=== PATIENT | male | born 1985 | race Caucasian/White ===

== ENCOUNTER 2025-06-05 14:19 | Emergency (ER) | payer OTHER ==
[2025-06-05] MEDS ORDERED: FENTANYL CITR 100 MCG/2 ML ONE (14:41)
[2025-06-05 14:46] LABS: Absolute Lymphocytes (CBC) 1.9 K/uL (0.7-4.9); Hematocrit 50.1 % (39.6-49.0); Hemoglobin 16.9 g/dL (13.6-17.9); MCH 34.2 pg (27.0-35.0); MCHC 33.7 g/dL (32.0-36.0); MCV 101.4 fL (80-100); MPV 9.0 fL (7.6-11.3); Nucleated RBC Absolute Count 0.0 (0-0); Nucleated Red Blood Cells % 0.1 % (0-0); RBC Red Blood Cell Count 4.94 M/uL (4.33-5.43); White Blood Count 5.60 thou/uL (4.3-10.9)
[2025-06-05 14:53] LABS: PT Prothrombin Time 12.1 SECONDS (10-13.0); Protime INR 1.07
[2025-06-05 15:01] LABS: Anion Gap 12.8 mEq/L (5.0-15.0); BUN Blood Urea Nitrogen 6.0 mg/dL (7-18); Glucose Level 102.0 mg/dL (74-106); Potassium 3.8 mEq/L (3.5-5.1)
[2025-06-05] MEDS ORDERED: LIDOCAINE 2% INJ, 20 mL 20 ML ONE (15:56)
--- NOTE | 2025-06-05 15:56 | RAD REPORT ---
EXAM: Chest Abdomen Pelvis W Cont CLINICAL INDICATION: Male, 39 years FALL TECHNIQUE: CT chest, abdomen and pelvis was performed, with IV contrast, as per department protocol. Axial, sagittal and coronal reconstructions were obtained. One or more of the following dose reduction techniques were used: Automated exposure control, adjustment of the mA and/or kV according to the patient size, and/or iterative reconstruction. Unless otherwise specified, incidental findings do not require dedicated imaging follow-up. [id number]. COMPARISON: No prior exams FINDINGS: ---THORAX--- LOWER NECK AND CHEST WALL: Visualized thyroid gland and soft tissues are normal. MEDIASTINUM AND LYMPH NODES: No mediastinal mass or fluid collection. Normal size mediastinal, hilar, and axillary lymph nodes. Small hiatal hernia with thickened distal esophagus. THORACIC AORTA: No thoracic aortic aneurysm. PULMONARY ARTERIES: Caliber is within normal limits. HEART: Normal heart size. No coronary calcifications.No significant pericardial effusion. LUNGS AND AIRWAYS: Airways are clear. No evidence of airspace or interstitial process. Scattered 4 mm and smaller pulmonary nodules noted which are of doubtful significance and do not require follow-up. PLEURA: No pleural effusion. No pneumothorax. ---ABDOMEN/PELVIS--- UPPER GI: No significant abnormality. LIVER: Hepatomegaly with steatosis. GALLBLADDER/BILE DUCTS: No biliary ductal dilatation.? PANCREAS: Secretions in the region of the pancreas. Slight edema around the uncinate. Cystic structur e near the tail the pancreas measures 2.5 x 1.8 cm. SPLEEN: Unremarkable. ADRENALS: No adrenal masses. KIDNEYS AND URETERS: No hydronephrosis.No suspicious renal mass.No renal calculi.No ureteral calculi. ABDOMINAL AORTA AND OTHER VESSELS: Normal caliber aorta and IVC. PERITONEUM: No abnormal free fluid. No free air. LYMPH NODES: No pathologic lymphadenopathy. ABDOMINAL WALL: Unremarkable SMALL BOWEL/COLON: Small bowel has normal course and caliber. No colonic wall thickening or pericolon ic inflammatory changes.Normal appendix. URINARY BLADDER: Nonspecific circumferential bladder wall thickening. REPRODUCTIVE ORGANS: No pathologic process. ---COMBINED--- MUSCULOSKELETAL: Multilevel degenerative changes in the spine. No acute fracture. ADDITIONAL FINDINGS: None. IMPRESSION: No evidence of significant trauma to the chest, abdomen, or pelvis. Mild edema around the uncinate with a few pancreatic head calcifications could reflect sequela of acu te on chronic pancreatitis. Cystic collection near the tail the pancreas. Assuming the patient has had prior pancreatitis, this probably represents a chronic pseudocyst. If no prior history of pancrea titis, suggest 12 month follow-up MRI to assess for stability as this could represent an intraductal papillary mucinous neoplasm (IPMN). Hepatomegaly with steatosis.
[2025-06-05] MEDS ORDERED: LIDOCAINE 2% MPF 5 ML VIAL ONE (16:02)
--- NOTE | 2025-06-05 16:21 | RAD REPORT ---
EXAM: Hand Right 3 View HISTORY: fall COMPARISON: None FINDINGS: Bones: No acute fracture identified. Fixation hardware at the fifth metacarpal. No hardware competiti ons. Alignment:No significant malalignment. Degenerative changes:None significant. Other: No radiopaque foreign body. IMPRESSION: No acute osseous abnormality involving the imaged hand.
--- NOTE | 2025-06-05 17:07 | EDPHYS ---
Physician Documentation [facility] Name: Blayne Kenny Age: 39 yrs Sex: Male : 1985 Arrival Date: 06/05/2025 Time: 14:19 Bed 7 Private MD: ED Physician Harmeet Montes HPI: 06/05 14:30 This 39 yrs old Male presents to ER via EMS with complaints of Fall Injury, Hand Injury cp - Rib pain. 14:30 Details of fall: The patient fell from an upright position, while walking, and struck a cp concrete surface, woodpillar. Onset: The symptoms/episode began/occurred just prior to arrival. Associated injuries: The patient sustained injury to the chest, specifically the right lateral anterior chest and right lateral posterior chest, pain with breathing, pain with movement, tenderness, injury to the abdomen, specifically the anterior aspect of right lateral abdomen and posterior aspect of right lateral abdomen, contusion, tenderness, right hand and right forearm. Severity of symptoms: in the emergency department the symptoms are unchanged, despite home interventions. 14:30 Patient reports losing balance while crab fishing causing him to fall into water. cp Reports falling onto wooden pillar and striking right side of abdomen/chest. Has multiple lacerations to right hand and injury to right forearm. Historical: - Allergies: 14:23 PENICILLINS; iw - Home Meds: 14:23 None [Active]; iw - PMHx: 14:23 Seizure; iw - Infectious Disease History:: Denies. ROS: 14:35 Constitutional: Negative for fever, cp 14:35 Cardiovascular: Positive for chest pain, of the right lateral posterior chest and right cp lateral anterior chest, 14:35 Respiratory: Negative for cough, shortness of breath, wheezing, 14:35 Abdomen/GI: Positive for abdominal pain, of the anterior aspect of right lateral cp abdomen and posterior aspect of right lateral abdomen, contusion, 14:35 Eyes: Negative for injury, pain, redness, and discharge, cp 14:35 Neck: Negative for stiffness, 14:35 MS/extremity: Positive for laceration, tenderness, of the natarajan side of right hand, Negative for decreased range of motion, 14:35 Neuro: Negative for altered mental status, headache, loss of consciousness, 14:35 All other systems are negative, Exam: 14:40 Constitutional: The patient appears in no acute distress, alert, awake, cp non-diaphoretic, non-toxic, well developed, well nourished, uncomfortable, 14:40 Head/Face: Normocephalic, atraumatic. cp 14:40 Eyes: Periorbital structures: appear normal, Conjunctiva: normal, no exudate, no cp injection, Sclera: no appreciated abnormality, Lids and lashes: appear normal, bilaterally, 14:40 ENT: External ear(s): are unremarkable, Nose: is normal, Mouth: Lips: moist, Oral mucosa: moist, Posterior pharynx: Airway: no evidence of obstruction, patent, 14:40 Neck: C-spine: vertebral tenderness, is not appreciated, crepitus, is not appreciated, ROM/movement: pain, is not appreciated, limited range of motion, is not appreciated, 14:40 Chest/axilla: Inspection: normal, Palpation: crepitus, is not appreciated, tenderness, that is moderate, of the right lateral anterior lower chest and right lateral posterior lower chest, 14:40 Cardiovascular: Rate: normal, Rhythm: regular, Edema: is not appreciated, JVD: is not appreciated, 14:40 Respiratory: the patient does not display signs of respiratory distress, Respirations: shallow respirations, that is mild, Breath sounds: are clear throughout, no decreased breath sounds, no stridor, no wheezing, Respiratory rate: 18 14:40 Abdomen/GI: Inspection: bruising, anterior aspect of right lateral lower abdomen and posterior aspect of right lateral lower abdomen, distension, is not seen, Bowel sounds: active, all quadrants, Palpation: severe abdominal tenderness, in the anterior aspect of right lateral lower abdomen and posterior aspect of right lateral lower abdomen, rebound tenderness, is not appreciated, voluntary guarding, 14:40 Back: vertebral tenderness, is not appreciated, 14:40 Musculoskeletal/extremity: Extremities: noted in the right hand: multiple abrasions natarajan side, several superficial lacerations with largest being mid lower palm and vertical approximately 3 cm length through dermal layer. Laceration noted dorsal side of right thumb, transverse along metacarpal head, through subcutaneous tissue, no signs tendon injury, approximately 3 cm in length. Laceration noted base of right fifth finger natarajan side through subcutaneous tissue, no signs tendon injury, laceration extending into web space of right fourth and fifth fingers, approximately 3 cm length, noted in the natarajan side mid right forearm: contusion, ecchymosis, swelling, tenderness, ROM: full active range of motion, in the right hand, Perfusion: the extremity is normally perfused throughout, tingling noted distal phalanx of right small finger 14:40 Skin: no rash present. 14:40 Neuro: Orientation: to person, place \T\ time. Mentation: is normal, Motor: moves all cp fours, Vital Signs: 14:23 BP 122 / 107; Pulse 87; Resp 16; Temp 98.1; Pulse Ox 98% on R/A; Pain 2/10; iw 14:23 Pain Scale: Adult iw Laceration: 17:05 Wound Repair of 3cm ( 1.2in ) full thickness laceration to natarajan side base of right cp fifth finger. Linear shaped.. Neuro:Tingling distal to wound. Vascular:Intact distal to wound. Tendon:Intact distal to wound. Anesthesia: Wound infiltrated with 3 mls of 2% lidocaine. Wound prep: Moderate cleansing by me, Wound irrigation by me. Skin closed with 3 4-0 Prolene using loose closure. Dressed with Bacitracin, 4x4's. Patient tolerated well. 17:05 Wound Repair of 3cm ( 1.2in ) subcutaneous laceration to dorsal side of metacarpal head cp of right thumb. Irregularly shaped.. Distal neuro/vascular/tendon intact. Anesthesia: Wound infiltrated with 3 mls of 2% lidocaine. Wound prep: Moderate cleansing by me, Wound irrigation by me. Skin closed with 3 4-0 Prolene using loose closure. Dressed with Bacitracin, 4x4's. Patient tolerated well. MDM: 14:24 Medical Screening Exam initiated cp 15:00 Differential diagnosis: closed head injury, contusion, fracture, laceration, multiple cp trauma, tendon injury. 16:49 Independent interpretation of the following test(s) in the Emergency Department X-Ray: My interpretation is images of right forearm negative for fracture and images of right hand negative for fracture. 17:06 Data reviewed: vital signs, nurses notes, radiologic studies, CT scan, plain films. 17:06 I considered the following discharge prescriptions or medication management in the emergency department Medications were administered in the Emergency Department. See MAR. Counseling: I had a detailed discussion with the patient and/or guardian regarding the historical points, exam findings, and any diagnostic results supporting the discharge/admit diagnosis, lab results, radiology results, the need for outpatient follow up, a hand specialist, a orthopedic surgeon, to return to the emergency department if symptoms worsen or persist or if there are any questions or concerns that arise at home. Response to treatment: the patient's symptoms have markedly improved after treatment, and as a result, I will discharge patient. Special discussion: I discussed in detail with the patient the higher chance of wound infection based on his presenting history. ED course: Discussed incidental findings on CT of pancreatic cyst and hepatic steatosis. Recommend wound check with ortho/hand next 2-3 days. 06/05 14:24 Order name: Basic Metabolic Panel; Complete Time: 15:05 06/05 15:05 Interpretation: Normal except: BUN 6; CRE 0.68. 06/05 14:24 Order name: CBC with Diff; Complete Time: 15:05 06/05 15:06 Interpretation: Normal except: HCT 50.1; MCV 101.4; PLT 127. 06/05 14:24 Order name: PT-INR; Complete Time: 15:05 06/05 14:24 Order name: CT Chest, Abdomen, Pelvis - W/Contrast; Complete Time: 16:02 06/05 16:03 Interpretation: Report reviewed. 06/05 14:24 Order name: XRAY Hand RIGHT 3 View; Complete Time: 16:46 06/05 16:17 Order name: Forearm Right XRAY; Complete Time: 17:14 [facility] 06/05 17:14 Interpretation: Reviewed. 06/05 14:24 Order name: Labs collected and sent; Complete Time: 14:33 06/05 14:48 Order name: Wound Care: clean and irrigate wounds; Complete Time: 15:07 06/05 16:02 Order name: Dressing - Wound; Complete Time: 16:07 06/05 16:02 Order name: Gloves, Sterile; Complete Time: 16:05 06/05 16:02 Order name: Setup Suture Tray; Complete Time: 16:05 06/05 16:48 Order name: Splint - Volar Wrist Splint; Complete Time: 17:22 06/05 16:48 Order name: Wound dressing; Complete Time: 17:18 cp Administered Medications: 14:49 Not Given (Patient Refused): fentanyl (pf)25 mcg IVP once iw 14:49 Not Given (Patient Refused): fentanyl (pf)25 mcg IVP once iw 16:50 Drug: Lidocaine Infiltration (2 %) 20 ml 5 ml Infiltration once; to bedside {Note: iw admin by PA. Therese} Volume: 5 ml; Route: Infiltration; 17:28 Not Given (Patient Refused): ns 0.9% 1000 ml IV at 1000 ml once; to be given as a bolus iw over 60 minutes 17:28 Drug: Doxycycline PO 100 mg PO once Route: PO; iw 17:30 Follow up: Response: No adverse reaction iw 17:28 Drug: Ibuprofen PO 800 mg PO once Route: PO; iw 17:30 Follow up: Response: No adverse reaction iw Disposition: 18:28 Co-signature as Attending Physician, Harmeet Mnotes MD I reviewed the patient's care rn provided by the Advanced Practice Provider and agree with the diagnosis and treatment plan. Disposition Summary: 06/05/25 17:07 Discharge Ordered Notes: Location: Home cp Problem: new cp Symptoms: have improved cp Condition: Stable cp Diagnosis - Contusion of thorax, unspecified, initial encounter - right lateral cp - Contusion of abdominal wall - right lateral cp - Laceration without foreign body of right hand, initial encounter cp - Contusion of right forearm cp Followup: cp - With: Private Physician - When: 2 - 3 days - Reason: Wound Recheck, laceration to right hand Discharge Instructions: - Discharge Summary Sheet cp - Abdominal Pain, Adult cp - Blunt Abdominal Trauma cp - Contusion cp - Chest Contusion, Adult cp - Laceration Care, Adult cp - Sutured Wound Care cp Forms: - Medication Reconciliation Form cp - Antibiotic Education cp - Prescription Opioid Use cp - Patient Portal Instructions cp - Leadership Thank You Letter cp Prescriptions: - Ibuprofen 800 mg Oral Tablet - take 1 tablet ORAL route every 8 hours As needed take with food; 30 tablet; cp Refills: 0, Product Selection Permitted - Doxycycline Hyclate 100 mg Oral Tablet - take 1 tablet ORAL route every 12 hours; 20 tablet; Refills: 0, Product cp Selection Permitted Signatures: Dispatcher [employer] Brisa Casiano RN RN iw Harmeet Montes MD MD rn Page, Corey, PA-C PA-C cp Corrections: (The following items were deleted from the chart) 14:24 14:24 Hand Right 3 View+[email or web address] ordered. EDMS EDMS 17:06/04 14:35 Constitutional: Negative for chills, fever, poor PO intake, cp cp 06/05 17:06/04 14:35 Respiratory: Negative for cough, shortness of breath, wheezing, cp cp
--- NOTE | 2025-06-05 17:07 | ER ---
Nurse's Notes [facility] Name: Blayne Kenny Age: 39 yrs Sex: Male : 1985 Arrival Date: 06/05/2025 Time: 14:19 Bed 7 Private MD: Diagnosis: Contusion of thorax, unspecified, initial encounter-right lateral;Contusion of abdominal wall-right lateral;Laceration without foreign body of right hand, initial encounter;Contusion of right forearm Presentation: 06/05 14:21 Chief complaint: EMS states: pt [place] on [place] right [place] [address] [place] , cut his right hand on some rocks, pain to right ribs , no LOC. 14:21 Acuity: HERMINIO 4 iw 14:23 Coronavirus screen: At this time, the client does not indicate any symptoms associated iw with coronavirus-19. Ebola Screen: No symptoms or risks identified at this time. Initial Sepsis Screen: Does the patient meet any 2 criteria? No. Patient's initial sepsis screen is negative. Does the patient have a suspected source of infection? No. Patient's initial sepsis screen is negative. Risk Assessment: Do you want to hurt yourself or someone else? Patient reports no desire to harm self or others. Onset of symptoms was June 05, 2025. 14:23 Method Of Arrival: EMS: [facility] iw 14:24 Acuity: HERMINIO 3 iw Historical: - Allergies: 14:23 PENICILLINS; iw - Home Meds: 14:23 None [Active]; iw - PMHx: 14:23 Seizure; iw - Infectious Disease History:: Denies. Assessment: 14:22 General: Appears in no apparent distress. Behavior is calm, cooperative. iw Vital Signs: 14:23 BP 122 / 107; Pulse 87; Resp 16; Temp 98.1; Pulse Ox 98% on R/A; Pain 2/10; iw 14:23 Pain Scale: Adult iw ED Course: 14:20 Patient arrived in ED. em1 14:21 Brisa Schilling, RADHA is Primary Nurse. iw 14:21 Dakota Temple PA-C is PHCP. cp 14:21 Harmeet oMntes MD is Attending Physician. cp 14:22 Triage completed. iw 14:23 Arm band placed on. iw 14:33 Initial lab(s) drawn, by me, sent to lab. Inserted saline lock: 22 gauge in right iw antecubital area, using aseptic technique. Blood collected. Flushed with 10 mL NS. 15:36 CT Chest, Abdomen, Pelvis - W/Contrast In Process Unspecified. EDMS 16:07 XRAY Hand RIGHT 3 View In Process Unspecified. EDMS 17:00 Forearm Right XRAY In Process Unspecified. EDMS 17:22 Orthoglass splint: Volar splint applied on right arm. em1 Administered Medications: 14:49 Not Given (Patient Refused): fentanyl (pf)25 mcg IVP once iw 14:49 Not Given (Patient Refused): fentanyl (pf)25 mcg IVP once iw 16:50 Drug: Lidocaine Infiltration (2 %) 20 ml 5 ml Infiltration once; to bedside {Note: iw admin by IVAN Saleh.} Volume: 5 ml; Route: Infiltration; 17:28 Not Given (Patient Refused): ns 0.9% 1000 ml IV at 1000 ml once; to be given as a bolus iw over 60 minutes 17:28 Drug: Doxycycline PO 100 mg PO once Route: PO; iw 17:30 Follow up: Response: No adverse reaction iw 17:28 Drug: Ibuprofen PO 800 mg PO once Route: PO; iw 17:30 Follow up: Response: No adverse reaction iw Outcome: 17:07 Discharge ordered by MD. scherer 17:28 Patient left the ED. iw Signatures: Dispatcher [employer] Brisa Casiano, RN RN iw Aron Solomon em1 Dakota Temple PA-C PA-C cp Corrections: (The following items were deleted from the chart) 14:37 14:23 Pulse 87bpm; Resp 16bpm; Pulse Ox 98% RA; Temp 98.1F; Pain 2/10, Adult; iw iw
--- NOTE | 2025-06-05 17:13 | RAD REPORT ---
EXAMINATION: Forearm Right VIEWS: Two views CLINICAL INDICATION: Male, 39 years old. PAIN COMPARISON: No prior exams IMPRESSION: No acute fracture. No acute soft tissue abnormality.
[2025-06-05] MEDS ORDERED: DOXYCYCLINE 100 MG CAP PO ONE (17:19)
[2025-06-05] MEDS ORDERED: IBUPROFEN 400 MG TAB ONE (17:19)
[2025-06-05 17:55] VITALS: BP 122/107; TEMP 98.1; O2SAT 98
== END 2025-06-05 17:28 | disposition home or self-care (01) ==
LOC: ER 14:19
PROC: 0XQ Anatomical Regions, Upper Extremities, Repair (ICD-10-PCS; principal; 2025-06-05)
PROC: 0XQ Anatomical Regions, Upper Extremities, Repair (ICD-10-PCS; 2025-06-05)
DX: S61.411A Laceration without foreign body of right hand, initial encounter (principal); S61.011A Laceration without foreign body of right thumb without damage to nail, initial encounter; S20.20XA Contusion of thorax, unspecified, initial encounter; S30.1XXA Contusion of abdominal wall, initial encounter; S50.11XA Contusion of right forearm, initial encounter; W17.89XA Other fall from one level to another, initial encounter; Y93.89 Activity, other specified; Y92.89 Other specified places as the place of occurrence of the external cause; Y99.9 Unspecified external cause status; Y92.9 Unspecified place or not applicable
CPT/HCPCS: 85025; 80048; 36415; 85610; 71260; 74177; 73130; 73090; 99284; 12002 ×2; Q9967; J2003; J3010

== ENCOUNTER 2025-06-10 13:39 | Emergency (ER) | payer OTHER ==
[2025-06-10] MEDS ORDERED: LORazepam 2 MG/ML VIAL ONE (14:17)
[2025-06-10] MEDS ORDERED: THIAMINE 200 MG/2 ML INJ ONE (14:17)
[2025-06-10] MEDS ORDERED: LEVETIRACETAM 500 MG/5 ML VIAL IV ONE (14:18)
[2025-06-10] MEDS ORDERED: FAMOTIDINE 20 MG/2 ML VIAL IV ONE (14:18)
[2025-06-10] MEDS ORDERED: FOLIC ACID 5 MG/ML VIAL ONE (14:18)
[2025-06-10] MEDS ORDERED: NA CHLORIDE 0.9% 2,000 ML ONE (14:19)
[2025-06-10] MEDS ORDERED: MULTIVITAMINS 10 ML VIAL (INJ) IV ONE (14:19)
[2025-06-10] MEDS ORDERED: NA CHLORIDE 0.9% 100 ML ONE (14:19)
[2025-06-10 14:26] LABS: Absolute Lymphocytes (CBC) 0.8 K/uL (0.7-4.9); Hematocrit 47.8 % (39.6-49.0); Hemoglobin 16.6 g/dL (13.6-17.9); MCH 35.2 pg (27.0-35.0); MCHC 34.7 g/dL (32.0-36.0); MCV 101.4 fL (80-100); MPV 9.0 fL (7.6-11.3); Nucleated RBC Absolute Count 0.0 (0-0); Nucleated Red Blood Cells % 0.1 % (0-0); RBC Red Blood Cell Count 4.72 M/uL (4.33-5.43); White Blood Count 6.90 thou/uL (4.3-10.9)
--- NOTE | 2025-06-10 14:31 | RAD REPORT ---
Procedure: Chest Single View HISTORY: Cough COMPARISON: none FINDINGS: The lungs appear clear of acute infiltrate. No significant pleural effusion noted. The heart is normal size. IMPRESSION: No acute abnormality is displayed.
[2025-06-10 14:34] LABS: PT Prothrombin Time 13.1 SECONDS (10-13.0); PTT, Activated Partial Thromb 27.0 SECONDS (27.2-37.4); Protime INR 1.16
[2025-06-10 15:00] LABS: ALT/SGPT 83 U/L (16-61); AST/SGOT 153 U/L (15-37); Albumin 3.4 g/dL (3.4-5.0); Albumin/Globulin Ratio 0.9 (1.1-1.8); Alkaline Phosphatase 203 U/L (45-117); Anion Gap 21.0 mEq/L (5.0-15.0); BUN Blood Urea Nitrogen 5 mg/dL (7-18); Bilirubin Indirect, Calculated 1.4 mg/dL (0.2-0.8); Globulin 3.6 g/dL (2.3-3.5); Glucose Level 111 mg/dL (74-106); Lipase 636 U/L (13-75); Magnesium 1.7 mg/dL (1.6-2.4); NT PRO-BNP 592 pg/mL (<125); Potassium 3.0 mEq/L (3.5-5.1); Troponin High Sensitivity 10.5 pg/mL (<58.9)
--- NOTE | 2025-06-10 15:35 | RAD REPORT ---
EXAMINATION: CT HEAD WITHOUT CONTRAST CT CERVICAL SPINE WITHOUT CONTRAST CLINICAL INDICATION: Seizure. Head and neck injury status post fall. Head and neck pain TECHNIQUE: Axial CT images from the skull base to the vertex without intravenous contrast. Axial CT i mages through the cervical spine were obtained without intravenous contrast. Sagittal and coronal reformatted images were created from the data set. Coronal and sagittal reformatted images were creat ed from the data set. One or more of the following dose reduction techniques were used: Automated exposure control, adjustment of the mA and/or kV according to patient size, and/or iterative reconstr uction. Unless otherwise specified, incidental findings do not require dedicated imaging follow-up. [id number]. Comparison: none FINDINGS: An intracranial bleed is not seen. Ventricles are normal in caliber. No significant hypodensity within the brain No extra-axial fluid collection. No fluid within the sinuses/mastoids No fracture or dislocation is seen involving the cervical spine. IMPRESSION: No acute intracranial abnormality noted A cervical fracture is not seen. If the patient continues to have symptoms to suggest acute [employer]/spinal pathology then MRI would be rec ommended
--- NOTE | 2025-06-10 15:42 | RAD REPORT ---
EXAM: CT CHEST, ABDOMEN AND PELVIS WITHOUT CONTRAST CLINICAL INDICATION: Chest and abdominal pain TECHNIQUE: CT chest, abdomen and pelvis was performed, without IV contrast, as per department protoco l. Axial, sagittal and coronal reconstructions were obtained. One or more of the following dose reduction techniques were used: Automated exposure control, adjustment of the mA and/or kV according to the patient size, and/or iterative reconstruction. Unless otherwise specified, incidental findings do not require dedicated imaging follow-up. The lack of IV and oral contrast limits evaluation of the mediastinum, antonia, vessels, organs and rosalie l. COMPARISON: June 05, 2025 FINDINGS: Small hiatal hernia. The esophagus is distended with fluid. Lungs are clear. No mediastinal or hilar lymphadenopathy seen. No pleural effusion. No pericardial effusion. Marked fatty liver. The liver is enlarged. The spleen, adrenals and kidneys unremarkable. The pancreas is edematous. Moderate stranding within the adjacent fat. Small amount of peripancreatic fluid extending into the left anterior pararenal space. 2 cm ill-defined structure medial to the spleen unchanged from prior exam perhaps a small pseudocyst. Several small pancreatic calcifications Normal appendix. There is no evidence of diverticulitis IMPRESSION: Moderate pancreatitis Marked fatty liver with hepatomegaly Esophagus is distended with fluid
[2025-06-10 16:03] LABS: Sqamous Epithelial None Seen /HPF (None Seen); Urine Crystals Unidentified Few /HPF (None Seen); Urine Culture Reflex Order NOT NEEDED; Urine Microscopic Reflex YN ORDER UMIC
[2025-06-10 16:14] LABS: METHAMPHETAM POSITIVE (NEGATIVE); THC Cannibis NEGATIVE (NEGATIVE)
--- NOTE | 2025-06-10 17:22 | ER ---
Nurse's Notes [facility] Name: Blayne Kenny Age: 39 yrs Sex: Male : 1985 Arrival Date: 06/10/2025 Time: 13:39 Bed 25 Private MD: Diagnosis: Other chronic pancreatitis;Biliary acute pancreatitis;Hypokalemia;Epileptic seizures related to external causes, not intractable;Tachycardia, unspecified;Weakness;Alcohol abuse;Alcohol dependence;Abuse of other non-psychoactive substances;Abnormal findings on diagnostic imaging of liver and biliary tract;Abnormal level of enzymes in specimens from digestive organs and abdominal cavity Presentation: 06/10 13:45 Chief complaint: EMS states: toned out for seizures. reports fever and chills this ak1 morning. This afternoon patient had 2 grand mal seizures. Post ictal when ems arrived. BP 90/40s, HR 170s. 18 g to LAC, administered 550ml of LR and zofran 4 mg IV. Coronavirus screen: Vaccine status: Patient reports being unvaccinated. Ebola Screen: No symptoms or risks identified at this time. Initial Sepsis Screen: Does the patient meet any 2 criteria? HR > 90 bpm. Does the patient have a suspected source of infection? No. Patient's initial sepsis screen is negative. Risk Assessment: Do you want to hurt yourself or someone else? Patient reports no desire to harm self or others. Onset of symptoms was June 10, 2025. 13:45 Method Of Arrival: [place] [facility] [place] Acuity: HERMINIO 3 ak1 Triage Assessment: 13:48 General: Appears uncomfortable, well groomed, well developed, well nourished, Behavior ak1 is calm, cooperative, appropriate for age. Pain: Denies pain. EENT: No signs and/or symptoms were reported regarding the EENT system. Neuro: Level of Consciousness is awake, alert, obeys commands, Oriented to person, place, time, situation, Appropriate for age Seizure activity reported prior to arrival. Type of seizure: grand mal seizure. Cardiovascular: Patient's skin is warm and dry. Respiratory: Airway is patent Respiratory effort is even, unlabored, Respiratory pattern is regular, symmetrical. GI: No signs and/or symptoms were reported involving the gastrointestinal system. : No signs and/or symptoms were reported regarding the genitourinary system. Derm: Skin is intact, is healthy with good turgor, Skin is normal. Musculoskeletal: Circulation, motion, and sensation intact. Range of motion: intact in all extremities. Historical: - Allergies: 13:47 PENICILLINS; me1 - PMHx: 13:47 Seizure; hiatal hernia (Unknown); me1 - PSHx: 13:47 bilateral legs for fx (Seizure); me1 - Immunization history:: Adult Immunizations up to date. - Infectious Disease History:: Denies. - Social history:: Smoking status: Patient reports the use of cigarette tobacco products, smokes one pack cigarettes per day. - Family history:: not pertinent. Screenin:49 [facility] ED Fall Risk Assessment (Adult) History of falling in the last 3 months, me1 including since admission No falls in past 3 months (0 pts) Confusion or Disorientation No (0 pts) Intoxicated or Sedated No (0 pts) Impaired Gait No (0 pts) Mobility Assist Device Used No (0 pt) Altered Elimination No (0 pt) Score/Fall Risk Level 0 - 2 = Low Risk Maintained a safe environment, Provided non-skid footwear, Hourly rounding (assess needs \T\ fall precautionary measures) done. Abuse screen: Denies threats or abuse. Nutritional screening: No deficits noted. Tuberculosis screening: No symptoms or risk factors identified. Assessment: 13:49 General: See triage assessment. me1 Vital Signs: 13:45 BP 126 / 94; Pulse 147; Resp 18; Temp 98.2; Pulse Ox 98% ; Weight 81.65 kg; Height 6 me1 ft. 2 in. ; 14:00 BP 136 / 71; Pulse 118; Resp 22; Pulse Ox 97% on R/A; me1 15:00 BP 130 / 89; Pulse 119; Resp 19; Pulse Ox 94% on R/A; me1 13:45 Body Mass Index 23.11 (81.65 kg, 187.96 cm) me1 Nicolas Coma Score: 17:08 Eye Response: spontaneous(4). Motor Response: obeys commands(6). Verbal Response: nam oriented(5). Total: 15. ED Course: 13:40 Patient arrived in ED. iw 13:42 Dakota Aguayo MD is Attending Physician. nam 13:47 Triage completed. me1 13:47 Arm band placed on Patient placed in an exam room. me1 13:49 Patient has correct armband on for positive identification. Bed in low position. Call ak1 light in reach. Side rails up X2. Provided Education on: POC. Verbalized understanding.. Client placed on continuous cardiac and pulse oximetry monitoring. NIBP monitoring applied. cardiac monitor on. Pulse ox on. NIBP on. 13:49 No provider procedures requiring assistance completed. Maintain EMS IV. Dressing me1 intact. Good blood return noted. Site clean \T\ dry. Gauge \T\ site: 18g LAC. Flushed with 10 mL NS. 14:00 Mildred Jackson, RN is Primary Nurse. me1 14:10 XRAY Chest (1 view) In Process Unspecified. EDMS 14:18 Initial lab(s) drawn, by ak, sent to lab. EKG done, by ED staff, reviewed by Dakota Aguayo MD. 15:12 Head C Spine Mpr Wo Con In Process Unspecified. EDMS 15:12 Chest Abd Pelvis Wo Con In Process Unspecified. EDMS 15:53 Urine Drug Screen Sent. me1 15:53 UA Rfx Cam Cult if indicated Sent. me1 15:53 Urine collected: clean catch specimen, chivo colored. ak1 17:20 Tyler Olson MD is Referral Physician. [facility] 17:20 Da Francisco MD is Referral Physician. [facility] Administered Medications: 14:32 Drug: Ativan IVP 2 mg IVP once Route: IVP; Site: left antecubital; me1 14:32 Drug: Keppra IV 1500 mg IV at bolus once Route: IV; Rate: bolus; Site: left antecubital;me1 15:01 Follow up: Response: No adverse reaction; IV Status: Completed infusion me1 14:32 Drug: Famotidine IVP 20 mg IVP once; dilute with 10 mL 0.9% NaCl; give over 2 minutes me1 Route: IVP; Site: left antecubital; 14:32 Drug: Thiamine IV 100 mg IV at bolus once Route: IV; Rate: bolus; Site: left me1 antecubital; 14:32 Drug: NS 0.9% IV 1000 ml IV at 1000 ml once; to be given as a bolus over 60 minutes me1 Route: IV; Rate: 1000 ml; Site: left antecubital; 14:32 Drug: Banana Bag - (Multivitamin IV 1 amp, NS 0.9% IV 1000 ml, Thiamine IV 100 mg, me1 foLIC Acid IVPB 1 mg) IV at 500 ml/hr once Route: IV; Rate: 500 ml/hr; Site: left antecubital; Medication: 13:49 VIS not applicable for this client. me1 Outcome: 17:29 AMA AMA form signed iw 17:29 Condition: stable 17:29 Discharge instructions given to patient, family, Instructed on discharge instructions, follow up and referral plans. 17:29 Patient left the ED. iw Signatures: Dispatcher [employer] EDDakota Gillis MD MD cha Williams, Irene, RN RN iw Mildred Jackson RN RN me1 Bhumika Zee pm7
--- NOTE | 2025-06-10 17:23 | EDPHYS ---
Physician Documentation [facility] Name: Blayne Kenny Age: 39 yrs Sex: Male : 1985 Arrival Date: 06/10/2025 Time: 13:39 Bed 25 Private MD: PEREZ Physician Dakota Aguayo HPI: 06/10 17:08 This 39 yrs old Male presents to ER via EMS with complaints of Seizure. nam 17:08 The patient presents after having a single isolated seizure, that lasted 2 minute(s). nam Character of seizure(s): Loss of consciousness: the patient did not lose consciousness, Motor activity: blank stare, Incontinence: none. Seizure onset: today. Context: the seizure(s) was witnessed, by family, . Seizure Hx: Cause: unknown, etoh abuse. Associated injury: The patient did not suffer any apparent associated injury. Current symptoms: weak , abdominal pain. The patient has not experienced similar symptoms in the past. Historical: - Allergies: 13:47 PENICILLINS; me1 - PMHx: 13:47 Seizure; hiatal hernia (Unknown); me1 - PSHx: 13:47 bilateral legs for fx (Seizure); me1 - Immunization history:: Adult Immunizations up to date. - Infectious Disease History:: Denies. - Social history:: Smoking status: Patient reports the use of cigarette tobacco products, smokes one pack cigarettes per day. - Family history:: not pertinent. ROS: 17:08 Constitutional: Negative for fever, chills, and weight loss, ENT: Negative for injury, nam pain, and discharge, Neck: Negative for injury, pain, and swelling, Respiratory: Negative for shortness of breath, cough, wheezing, and pleuritic chest pain, Back: Negative for injury and pain, : Negative for injury, bleeding, discharge, and swelling, MS/Extremity: Negative for injury and deformity, Skin: Negative for injury, rash, and discoloration, Psych: Negative for depression, anxiety, suicide ideation, homicidal ideation, and hallucinations, Allergy/Immunology: Negative for hives, rash, and allergies, Endocrine: Negative for neck swelling, polydipsia, polyuria, polyphagia, and marked weight changes, 17:08 Eyes: Positive for matting, redness, of the iris of right eye and inner aspect of conjuctiva of right eye, 17:08 Cardiovascular: Positive for palpitations, 17:08 Respiratory: Positive for cough, 17:08 Abdomen/GI: Positive for abdominal pain, nausea, 17:08 Neuro: Positive for seizure activity, weakness, Exam: 17:08 Constitutional: This is a well developed, well nourished patient who is awake, alert, nam and in no acute distress. Head/Face: Normocephalic, atraumatic. ENT: Nares patent. No nasal discharge, no septal abnormalities noted. Tympanic membranes are normal and external auditory canals are clear. Oropharynx with no redness, swelling, or masses, exudates, or evidence of obstruction, uvula midline. Mucous membranes moist. Neck: Trachea midline, no thyromegaly or masses palpated, and no cervical lymphadenopathy. Supple, full range of motion without nuchal rigidity, or vertebral point tenderness. No Meningismus. Chest/axilla: Normal chest wall appearance and motion. Nontender with no deformity. No lesions are appreciated. Respiratory: Lungs have equal breath sounds bilaterally, clear to auscultation and percussion. No rales, rhonchi or wheezes noted. No increased work of breathing, no retractions or nasal flaring. Back: No spinal tenderness. No costovertebral tenderness. Full range of motion. Male : Normal genitalia with no discharge or lesions. Skin: Warm, dry with normal turgor. Normal color with no rashes, no lesions, and no evidence of cellulitis. MS/ Extremity: Pulses equal, no cyanosis. Neurovascular intact. Full, normal range of motion., bilateral aka Psych: Awake, alert, with orientation to person, place and time. Behavior, mood, and affect are within normal limits. 17:08 Eyes: Periorbital structures: appear normal, no acute changes, Pupils: no acute changes, Extraocular movements: no acute changes, Conjunctiva: injected, in the right eye, Corneas: 17:08 ECG was reviewed by the Attending Physician. 17:08 Abdomen/GI: Inspection: distension, that is mild, Bowel sounds: active, all quadrants, Palpation: moderate abdominal tenderness, in the right upper quadrant and left upper quadrant, Liver: is firm, Hernia: not appreciated, 17:08 Neuro: Orientation: is normal, appropriate for stated age, no acute changes, Mentation: is normal, appropriate for stated age, no acute changes, Memory: is normal, appropriate for stated age, no acute changes, Cranial nerves: grossly normal, no acute changes, Sensation: is normal, no obvious gross deficits, appropriate no acute changes, Gait: is steady, at a normal pace, without difficulty, Deep tendon reflexes are 2+ (normal) in the bilateral brachioradialis, bicep, tricep and patellar and Achilles tendons, Babinski testing is normal, seizure activity, is not displayed by the patient, Vital Signs: 13:45 BP 126 / 94; Pulse 147; Resp 18; Temp 98.2; Pulse Ox 98% ; Weight 81.65 kg; Height 6 me1 ft. 2 in. ; 14:00 BP 136 / 71; Pulse 118; Resp 22; Pulse Ox 97% on R/A; me1 15:00 BP 130 / 89; Pulse 119; Resp 19; Pulse Ox 94% on R/A; me1 13:45 Body Mass Index 23.11 (81.65 kg, 187.96 cm) me1 Nicolas Coma Score: 17:08 Eye Response: spontaneous(4). Motor Response: obeys commands(6). Verbal Response: nam oriented(5). Total: 15. MDM: 13:42 Medical Screening Exam initiated nam 17:16 Differential diagnosis: cerebral vascular accident, drug overdose, cardiac arrhythmia, nam seizure. Data reviewed: vital signs, nurses notes, lab test result(s), EKG, radiologic studies, CT scan, plain films. Consideration of Admission/Observation Escalation of care including admission/observation considered. pt refused admission, refused tranfer, understand all risk, present as well. I considered the following discharge prescriptions or medication management in the emergency department Medications were administered in the Emergency Department. See MAR. Independent interpretation of the following test(s) in the Emergency Department EKG: See my EKG interpretation above. Test considered but Not performed: Ultrasound no abd usg. Historians other than the Patient: Spouse/Significant Other: well informed and updated, pt refuse admission. Care significantly affected by the following chronic conditions: Hypertension, alcohol abuse , pancreatitis. 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 06/10 13:51 Order name: Basic Metabolic Panel; Complete Time: 16:59 [facility] 06/10 13:51 Order name: CBC with Diff; Complete Time: 16:59 [facility] 06/10 13:51 Order name: LFT's; Complete Time: 16:59 [facility] 06/10 13:51 Order name: Magnesium; Complete Time: 16:59 [facility] 06/10 13:51 Order name: NT PRO-BNP; Complete Time: 16:59 [facility] 06/10 13:51 Order name: PT-INR; Complete Time: 16:59 [facility] 06/10 13:51 Order name: Troponin HS; Complete Time: 16:59 [facility] 06/10 13:51 Order name: Lipase; Complete Time: 16:59 [facility] 06/10 13:51 Order name: Acetaminophen; Complete Time: 16:59 [facility] 06/10 13:51 Order name: ETOH Level; Complete Time: 16:59 [facility] 06/10 13:51 Order name: Ptt, Activated; Complete Time: 16:59 [facility] 06/10 13:51 Order name: Salicylate; Complete Time: 16:59 [facility] 06/10 13:51 Order name: Urine Drug Screen; Complete Time: 16:59 [facility] 06/10 13:51 Order name: UA Rfx Cam Cult if indicated; Complete Time: 16:59 [facility] 06/10 13:51 Order name: XRAY Chest (1 view); Complete Time: 16:59 [facility] 06/10 14:04 Order name: Head C Spine Mpr Wo Con; Complete Time: 16:59 [facility] 06/10 14:46 Order name: Chest Abd Pelvis Wo Con; Complete Time: 16:59 [facility] 06/10 13:51 Order name: EKG; Complete Time: 13:52 [facility] 06/10 13:51 Order name: Cardiac monitoring; Complete Time: 14:18 [facility] 06/10 13:51 Order name: EKG - Nurse/Tech; Complete Time: 14:18 [facility] 06/10 13:51 Order name: IV Saline Lock; Complete Time: 14:07 [facility] 06/10 13:51 Order name: Labs collected and sent; Complete Time: 14:07 [facility] 06/10 13:51 Order name: O2 Per Protocol; Complete Time: 14:08 06/10 13:51 Order name: O2 Sat Monitoring; Complete Time: 14:08 nam 06/10 13:51 Order name: Suicide Screening ([place]); Complete Time: 14:32 nam EC:08 Rate is 121 beats/min. Rhythm is regular. QRS [place] is Normal. UT interval is normal. QT nam interval is normal. No Q waves. T waves are Normal. No ST changes noted. Clinical impression: Sinus tachycardia. Interpreted by me. Reviewed by me. Administered Medications: 14:32 Drug: Ativan IVP 2 mg IVP once Route: IVP; Site: left antecubital; me1 14:32 Drug: Keppra IV 1500 mg IV at bolus once Route: IV; Rate: bolus; Site: left antecubital;sd1 15:01 Follow up: Response: No adverse reaction; IV Status: Completed infusion me1 14:32 Drug: Famotidine IVP 20 mg IVP once; dilute with 10 mL 0.9% NaCl; give over 2 minutes me1 Route: IVP; Site: left antecubital; 14:32 Drug: Thiamine IV 100 mg IV at bolus once Route: IV; Rate: bolus; Site: left me1 antecubital; 14:32 Drug: NS 0.9% IV 1000 ml IV at 1000 ml once; to be given as a bolus over 60 minutes me1 Route: IV; Rate: 1000 ml; Site: left antecubital; 14:32 Drug: Banana Bag - (Multivitamin IV 1 amp, NS 0.9% IV 1000 ml, Thiamine IV 100 mg, me1 foLIC Acid IVPB 1 mg) IV at 500 ml/hr once Route: IV; Rate: 500 ml/hr; Site: left antecubital; Disposition Summary: 06/10/25 17:22 Left Against Medical Advice Notes: Location: Home nam Problem: new nam Symptoms: are unchanged nam Condition: Fair nam Diagnosis - Other chronic pancreatitis nam - Biliary acute pancreatitis nam - Hypokalemia nam - Epileptic seizures related to external causes, not intractable nam - Tachycardia, unspecified nam - Weakness nam - Alcohol abuse nam - Alcohol dependence nam - Abuse of other non-psychoactive substances nam - Abnormal findings on diagnostic imaging of liver and biliary tract nam - Abnormal level of enzymes in specimens from digestive organs and abdominal cavity nam Followup: nam - With: Private Physician - When: Upon discharge from the Emergency Department - Reason: Recheck today's complaints, Continuance of care, Re-evaluation by your physician Followup: nam - With: Tyler Olson MD - When: 2 - 3 days - Reason: Recheck today's complaints, Re-evaluation by your physician Followup: nam - With: aD Francisco MD - When: 1 - 2 days - Reason: Recheck today's complaints, Re-evaluation by your physician Discharge Instructions: - Discharge Summary Sheet nam - Finding Treatment for Addiction nam - Potassium Content of Foods nam - Acute Pancreatitis nam - Substance Use Disorder nam - Seizure, Adult nam - Weakness nam - Acute Pancreatitis, [id number] nam - Alcohol Abuse and Nutrition nam - Seizure, Adult, [id number] nam - Weakness, [id number] nam - Hypokalemia nam - Chronic Pancreatitis nam - Deconditioning nam - Sinus Tachycardia nam - Alcohol Abuse and Dependence Information, Adult nam - Pancreatitis Eating Plan nam Signatures: Dispatcher [employer] Dakota Alvarado MD MD cha Eddleman, Michelle, RN RN me1 Corrections: (The following items were deleted from the chart) 14:46 13:52 Head C Spine Cap Wo Con+CT.RAD.BRZ ordered. EDMS EDMS
[2025-06-10 17:49] VITALS: TEMP 98.2
[2025-06-10 17:52] VITALS: BP 130/89; O2SAT 94
== END 2025-06-10 17:29 | disposition left against medical advice (07) ==
LOC: ER 13:39
DX: G40.509 Epileptic seizures related to external causes, not intractable, without status epilepticus (principal); K86.1 Other chronic pancreatitis; K85.10 Biliary acute pancreatitis without necrosis or infection; F10.20 Alcohol dependence, uncomplicated; R00.0 Tachycardia, unspecified; E87.6 Hypokalemia; R53.1 Weakness; F55.8 Abuse of other non-psychoactive substances; R93.2 Abnormal findings on diagnostic imaging of liver and biliary tract; R93.5 Abnormal findings on diagnostic imaging of other abdominal regions, including retroperitoneum; R85.0 Abnormal level of enzymes in specimens from digestive organs and abdominal cavity; F17.210 Nicotine dependence, cigarettes, uncomplicated
CPT/HCPCS: 96365; 93005; 85025; 81001; 80048; 36415; 83735; 85610; 80076; 85730; 84484; 83690; 83880; 80307; 70450; 71250; 72125; 74176; 71045; 96375; 99285; 80143; 80179; 82077; J3411; J1953; J7030